=== PATIENT | female | born 1955 | race Caucasian/White ===

== ENCOUNTER 2016-06-14 08:30 | Inpatient (IN) | payer OTHER ==
[~2016-06-14] VITALS: Ht 165.1 cm; Wt 109.5 kg
[~2016-06-14 08:30] MED LIST: ALPRAZOLAM0.5 MG PO; CRESTOR5 MG PO; GABAPENTIN100 MG PO; MELOXICAM15 MG PO; MORPHINE SULFAT15 MG PO; NORTRIPTYLINE H50 MG PO; PERCOCET 10/1 TABLET PO; SYNTHROID150 MCG PO; VENTOLIN HFA18 GM IH; VICODIN 5-3001 EACH PO; ZOLPIDEM TARTRA10 MG PO
[2016-06-14 11:51] VITALS: BP 137/85
[2016-06-14 20:34] VITALS: BP 169/86
[2016-06-14 21:07] LABS: HEMATOCRIT 43.9 % (36.0-46.0); MCH 30.6 PG (29.0-34.0); MCHC 32.8 G/DL (30.0-36.0); MCV 93.2 FL (83-99); PLATELET COUNT 260 K/uL (156-360); RBC DIS.WIDTH-SD 44.5 % (39-53); RED BLOOD COUNT 4.71 M/uL (3.80-5.20)
[2016-06-14 21:10] LABS: WHITE BLOOD COUNT 14.1 K/uL (4.1-10.2)
[2016-06-14 21:30] LABS: ANION GAP 6 MEQ/L (2-14); CHLORIDE 104 MEQ/L (99-109); GFR ESTIMATE (CALCULATED) > 59 mL/min/; POTASSIUM 4.4 MEQ/L (3.7-5.4); SAMPLE HEMOLYSIS CHECK 0; SAMPLE ICTERIC CHECK 0; SAMPLE LIPEMIA CHECK 0; SODIUM 136 MEQ/L (136-147); UREA NITROGEN (BUN) 14 mg/dL (9-23)
[2016-06-14 21:39] LABS: GLUCOSE 199 mg/dL (70-99)
[2016-06-15] VITALS (7 sets, daily range): BP systolic 103–192; BP diastolic 52–90
[2016-06-15 06:21] LABS: HEMATOCRIT 42.4 % (36.0-46.0); MCH 30.3 PG (29.0-34.0); MCHC 31.8 G/DL (30.0-36.0); MCV 95.1 FL (83-99); MEAN PLAT.VOLUME 10.3 uM^3 (9.5-12.4); PLATELET COUNT 271 K/uL (156-360); RBC DIS.WIDTH-CV 13.2 % (11.8-14.6); RBC DIS.WIDTH-SD 46.3 % (39-53); RED BLOOD COUNT 4.46 M/uL (3.80-5.20); WHITE BLOOD COUNT 15.1 K/uL (4.1-10.2)
[2016-06-15 06:45] LABS: ANION GAP 5 MEQ/L (2-14); CHLORIDE 104 MEQ/L (99-109); GFR ESTIMATE (CALCULATED) > 59 mL/min/; GLUCOSE 129 mg/dL (70-99); POTASSIUM 4.9 MEQ/L (3.7-5.4); SAMPLE HEMOLYSIS CHECK 0; SAMPLE ICTERIC CHECK 0; SAMPLE LIPEMIA CHECK 0; SODIUM 137 MEQ/L (136-147); UREA NITROGEN (BUN) 12 mg/dL (9-23)
[2016-06-16] VITALS (16 sets, daily range): BP systolic 101–159; BP diastolic 67–106
[2016-06-16 06:53] LABS: HEMATOCRIT 41.1 % (36.0-46.0); MCHC 31.4 G/DL (30.0-36.0); MCV 95.6 FL (83-99); MEAN PLAT.VOLUME 10.7 uM^3 (9.5-12.4); PLATELET COUNT 256 K/uL (156-360); RBC DIS.WIDTH-CV 13.2 % (11.8-14.6); RBC DIS.WIDTH-SD 46.5 % (39-53); WHITE BLOOD COUNT 13.9 K/uL (4.1-10.2)
[2016-06-16 07:36] LABS: ANION GAP 5 MEQ/L (2-14); CHLORIDE 102 MEQ/L (99-109); GFR ESTIMATE (CALCULATED) > 59 mL/min/; GLUCOSE 121 mg/dL (70-99); SAMPLE HEMOLYSIS CHECK 0; SAMPLE ICTERIC CHECK 0; SAMPLE LIPEMIA CHECK 0; SODIUM 137 MEQ/L (136-147); UREA NITROGEN (BUN) 10 mg/dL (9-23)
[2016-06-16 07:41] LABS: POTASSIUM 3.9 MEQ/L (3.7-5.4)
[2016-06-16 20:12] LABS: D-DIMER ELISA 0.96 mg/L FEU (< 0.57)
[2016-06-16 20:13] LABS: TROP-I INTERPRETATION NEGATIVE; TROPONIN-I < 0.01 ng/mL (0.0-0.30)
[2016-06-17] VITALS (11 sets, daily range): BP systolic 114–152; BP diastolic 56–87
[2016-06-17 06:21] LABS: MCH 30.9 PG (29.0-34.0); MCHC 32.2 G/DL (30.0-36.0); MEAN PLAT.VOLUME 10.6 uM^3 (9.5-12.4); PLATELET COUNT 259 K/uL (156-360); RBC DIS.WIDTH-CV 13.1 % (11.8-14.6); RBC DIS.WIDTH-SD 46.4 % (39-53); RED BLOOD COUNT 4.27 M/uL (3.80-5.20); WHITE BLOOD COUNT 14.8 K/uL (4.1-10.2)
[2016-06-17 06:43] LABS: ANION GAP 7 MEQ/L (2-14); CHLORIDE 102 MEQ/L (99-109); GFR ESTIMATE (CALCULATED) > 59 mL/min/; GLUCOSE 111 mg/dL (70-99); POTASSIUM 3.7 MEQ/L (3.7-5.4); SAMPLE HEMOLYSIS CHECK 0; SAMPLE ICTERIC CHECK 0; SAMPLE LIPEMIA CHECK 0; SODIUM 140 MEQ/L (136-147); UREA NITROGEN (BUN) 11 mg/dL (9-23)
[2016-06-17 06:47] LABS: TROP-I INTERPRETATION NEGATIVE; TROPONIN-I < 0.01 ng/mL (0.0-0.30)
[2016-06-18 00:50] VITALS: BP 111/61
[2016-06-18 05:37] VITALS: BP 124/59
[2016-06-18 06:38] VITALS: BP 138/76
[2016-06-18 10:47] VITALS: BP 108/64
[2016-06-18] MEDS ORDERED: CARDIZEM CD,CA240 MG PO (13:32)
[2016-06-18] MEDS ORDERED: ASPIRIN EC325 MG PO (13:32)
== END 2016-06-18 15:16 | disposition home or self-care (01) | DRG 734 ==
LOC: 2SOUTH 08:30 → 2EAST 10:41 → 4EAST 10:41 → 2SOUTH 10:41 → 2EAST 20:24 → 4EAST 06-16 09:14
PROVIDERS: Internal Medicine Cardiovascular Disease; Nurse Practitioner Acute Care; Obstetrics & Gynecology Gynecologic Oncology
DX: C54.1 Malignant neoplasm of endometrium (principal); Z68.42 Body mass index [BMI] 45.0-49.9, adult; I48.0 Paroxysmal atrial fibrillation; E66.9 Obesity, unspecified; D26.1 Other benign neoplasm of corpus uteri; M19.90 Unspecified osteoarthritis, unspecified site; E78.5 Hyperlipidemia, unspecified; F17.210 Nicotine dependence, cigarettes, uncomplicated; R94.31 Abnormal electrocardiogram [ECG] [EKG]; G89.29 Other chronic pain; F41.9 Anxiety disorder, unspecified; M79.7 Fibromyalgia; E03.9 Hypothyroidism, unspecified; F19.20 Other psychoactive substance dependence, uncomplicated; Z90.49 Acquired absence of other specified parts of digestive tract
CPT/HCPCS: 36415; 71010; 78582; 80048; 80053; 81003; 84443; 84484; 85025; 85027; 85379; 85610; 85730; 86900; 86901; 86920; 88305; 88307; 93005; 94010; 94640; 94640 76; 94799; 99202; A9540; A9567; J0330; J0690; J1100; J1170; J1650; J1885; J2250; J2270; J2405; J2710; J2765; J3010; J7050